=== PATIENT | female | born 1955 | race Caucasian/White ===

== ENCOUNTER 2024-01-07 21:57 | Emergency (ER) | payer MEDICARE, BC ==
[~2024-01-07] VITALS: Ht 160 cm; Wt 90.7 kg
[~2024-01-07 21:57] MED LIST: MECLIZINE HCL12.5 MG PO
[2024-01-07 22:12] VITALS: PULSE 97; RESP 18; TEMP 98.7
[2024-01-07] MEDS ORDERED: AUGMENTIN 500-1 EACH PO (22:32)
[2024-01-07] MEDS: CEFTRIAXONE 1 GM VIAL IM ONE (22:35)
[2024-01-07] MEDS ORDERED: CEFTRIAXONE 1 GM VIAL ONE (22:37)
[2024-01-08 03:05] VITALS: BP 137/84; PULSE 71; RESP 18; TEMP 98.3; O2SAT 100
== END 2024-01-07 22:51 | disposition home or self-care (01) ==
LOC: FSED 22:22
DX: S80.872A Other superficial bite, left lower leg, initial encounter (principal); W55.01XA Bitten by cat, initial encounter; Y92.89 Other specified places as the place of occurrence of the external cause; I10 Essential (primary) hypertension; D89.89 Other specified disorders involving the immune mechanism, not elsewhere classified
CPT/HCPCS: 99283; J0696